=== PATIENT | female | born 1970 | race Caucasian/White ===

== ENCOUNTER 2020-05-20 16:40 | Emergency (ER) | payer OTHER | END 2020-05-20 18:32 | disposition left against medical advice (07) | LOC: ER1 16:40 | DX: Z53.21 Procedure and treatment not carried out due to patient leaving prior to being seen by health care provider (principal) | CPT/HCPCS: 93005 ==

== ENCOUNTER → 2020-05-24 | Outpatient (CLI) | payer OTHER | LOC: EXRD 10:00 | DX: M19.90 Unspecified osteoarthritis, unspecified site (principal); M48.02 Spinal stenosis, cervical region | CPT/HCPCS: 72040; 72070; 72100 ==

== ENCOUNTER 2020-06-12 10:49 | Emergency (ER) | payer OTHER ==
[2020-06-12 12:53] LABS: BUN/CREATININE RATIO 14 (0-10)
[2020-06-12 13:36] LABS: HEMOGLOBIN 12.5 gm/dl (12.3-15.3); RED BLOOD COUNT 4.71 M/UL (4.00-5.10); WHITE BLOOD COUNT 9.7 K/UL (4.5-11.0)
== END 2020-06-12 16:48 | disposition home or self-care (01) ==
LOC: ER1 10:49
PROVIDERS: Emergency Medicine
DX: R00.2 Palpitations (principal); Z88.6 Allergy status to analgesic agent; Z88.2 Allergy status to sulfonamides
CPT/HCPCS: 71045; 80053; 81001; 82550; 82553; 83605; 83690; 84484; 84703; 85025; 85610; 85730; 93005; 99285; Q9967

== ENCOUNTER → 2020-10-16 | Outpatient (CLI) | payer OTHER | LOC: HEART CORB 11:02 | DX: R00.2 Palpitations (principal); M25.473 Effusion, unspecified ankle; Z87.898 Personal history of other specified conditions | CPT/HCPCS: 93306 ==

== ENCOUNTER → 2021-01-02 | Outpatient (CLI) | payer OTHER | LOC: SLEEP 21:30 | DX: G47.33 Obstructive sleep apnea (adult) (pediatric) (principal) | CPT/HCPCS: 95810 ==

== ENCOUNTER → 2021-07-18 | Outpatient (CLI) | payer OTHER | LOC: SLEEP 14:28 | DX: G47.33 Obstructive sleep apnea (adult) (pediatric) (principal) | CPT/HCPCS: 95811 ==